=== PATIENT | female | born 1995 | race African-American/Black ===

== ENCOUNTER 2019-09-13 17:42 | Emergency (ER) | payer OTHER ==
[~2019-09-13] VITALS: Ht 160 cm; Wt 82.6 kg
[2019-09-13 18:03] VITALS: BP 129/91
[2019-09-13] MEDS ORDERED: AMOXICILLIN500 M1 PO (19:30)
== END 2019-09-13 19:44 | disposition home or self-care (01) ==
LOC: ER 17:42
DX: J02.9 Acute pharyngitis, unspecified (principal); H66.93 Otitis media, unspecified, bilateral; Z90.89 Acquired absence of other organs